=== PATIENT | male | born 1970 | race Caucasian/White ===

== ENCOUNTER 2023-06-20 12:47 | Inpatient (IN) | payer MEDICAID ==
[~2023-06-20] VITALS: Ht 172.7 cm; Wt 73.0 kg
[2023-06-20 12:54] VITALS: BP_SYST 113; PULSE 97; RESP 18; TEMP 97.9; O2SAT 99
[2023-06-20] MEDS: NS 1000 ML IV.SOLN IV ONE (13:54)
[2023-06-20 14:06] LABS: BASOPHILS % (AUTO) 0.3 % (0.0-2.0); EOSINOPHILS # (AUTO) 0.1 K/uL (0.0-0.4); EOSINOPHILS % (AUTO) 1.1 % (0.0-4.0); HEMATOCRIT 34.2 % (36-54); LYMPHOCYTES # (AUTO) 1.7 K/uL (1.0-5.5); LYMPHOCYTES % (AUTO) 24.7 % (20.5-51.5); MEAN CORPUSCULAR HEMOGLOBIN 32 pg (27-31); MEAN CORPUSCULAR HGB CONC 35 % (32-36); MEAN CORPUSCULAR VOLUME 90 fL (79.0-98.0); MONOCYTES # (AUTO) 0.2 K/uL (0.0-1.0); MONOCYTES % (AUTO) 3.6 % (1.7-9.3); NEUTROPHILS # (AUTO) 4.9 K/uL (1.8-7.7); NEUTROPHILS % (AUTO) 70.3 % (40.0-70.0); PLATELET COUNT (AUTO) 272 K/uL (130-430); RED BLOOD CELL COUNT(AUTO) 3.79 MIL/uL (4.2-6.2); RED CELL DISTRIBUTION WIDTH 14.5 % (9.0-15.0); WHITE BLOOD COUNT (AUTO) 6.9 K/uL (4.8-10.8)
[2023-06-20 14:32] LABS: ALANINE AMINOTRANSFERASE 21 U/L (12-78); ALBUMIN 2.7 g/dL (3.4-4.8); ANION GAP 5 (5-15); ASPARTATE AMINOTRANSFERASE 15 U/L (10-37); BILIRUBIN,DIRECT 0.1 mg/dL (0.0-0.3); CARBON DIOXIDE 27 mmol/L (23-29); CHLORIDE 94 mmol/L (98-107); CREATININE 1.51 mg/dL (0.55-1.30); GFR AFRICAN AMERICAN 63 mL/min (>90); POTASSIUM 3.9 mmol/L (3.5-5.1); SODIUM SERUM 126 mmol/L (136-145); TOTAL BILIRUBIN 0.2 mg/dL (0.0-1.0); TOTAL PROTEIN, SERUM 6.9 g/dL (6.4-8.3); UREA NITROGEN, BLOOD 16 mg/dL (8-21)
[2023-06-20 14:51] LABS: GFR NON AFRICAN-AMERICAN 52 mL/min (>90)
[2023-06-20 14:55] LABS: GLUCOSE 641 mg/dL (74-106)
[2023-06-20] MEDS: MEROPENEM 1 GM in NS 100 ML IV ONE (15:32)
[2023-06-20] MEDS: INSULIN REGULAR, HUMAN 10 UNITS/0.1 ML, 3 ML VIAL IVP ONE (15:36)
[2023-06-20] MEDS ORDERED: D5W 1,000 ML IV PRN (16:15)
[2023-06-20] MEDS ORDERED: GLUCOSE (DEXTROSE) ORAL GEL -Adults PO PRN (16:15)
[2023-06-20] MEDS ORDERED: DEXTROSE 50% JECT 50 ML DISP.SYRIN IVP PRN (16:15)
[2023-06-20 18:03] VITALS: BP_SYST 139; PULSE 79; RESP 20; TEMP 98; O2SAT 100
[2023-06-20 18:04] VITALS: BP_SYST 139; PULSE 79; RESP 20; TEMP 98; O2SAT 100
[2023-06-20] MEDS ORDERED: VANCOMYCIN HCL 1 GM/NS PREMIX 250 ML IV SCH (18:15)
[2023-06-20 18:51] LABS: CHOLESTEROL 154 mg/dL (<200); HDL CHOLESTEROL 52 mg/dL (>45); TRIGLYCERIDES 150 mg/dL (30-150)
[2023-06-20 20:00] VITALS: BP_SYST 138; PULSE 76; RESP 18; TEMP 97.9; O2SAT 99
[2023-06-20] MEDS: VANCOMYCIN HCL 1,000 MG in NS 250 ML IV SCH (20:06)
[2023-06-20] MEDS: POTASSIUM CHLORIDE 10 MEQ in NACL 0.9% 1,000 ML IV SCH (20:06)
[2023-06-20] MEDS: MEROPENEM 500 MG in NS 50 ML IV SCH (21:23)
[2023-06-20] MEDS: INSULIN GLARGINE 100 UNITS/ML, 10 ML VIAL SUBCUT SCH (21:24)
[2023-06-20] MEDS: INSULIN REGULAR, HUMAN 100 UNITS/ML, 3 ML VIAL (humuLIN R) SUBCUT PRN (21:24)
[2023-06-21 01:21] VITALS: BP_SYST 110; PULSE 64; RESP 18; TEMP 97.6; O2SAT 100
[2023-06-21 08:00] VITALS: BP_SYST 125; PULSE 80; RESP 16; TEMP 98.6; O2SAT 100
[2023-06-21] MEDS: INSULIN GLARGINE 100 UNITS/ML, 10 ML VIAL SUBCUT SCH (09:00)
[2023-06-21 09:15] VITALS: O2SAT 100
[2023-06-21 10:39] LABS: BASOPHILS % (AUTO) 0.6 % (0.0-2.0); EOSINOPHILS # (AUTO) 0.1 K/uL (0.0-0.4); EOSINOPHILS % (AUTO) 2.1 % (0.0-4.0); HEMATOCRIT 34.6 % (36-54); HEMOGLOBIN 12.1 g/dL (14.0-18.0); LYMPHOCYTES # (AUTO) 1.8 K/uL (1.0-5.5); LYMPHOCYTES % (AUTO) 30.8 % (20.5-51.5); MEAN CORPUSCULAR HEMOGLOBIN 31 pg (27-31); MEAN CORPUSCULAR HGB CONC 35 % (32-36); MEAN CORPUSCULAR VOLUME 89 fL (79.0-98.0); MONOCYTES # (AUTO) 0.2 K/uL (0.0-1.0); MONOCYTES % (AUTO) 3.2 % (1.7-9.3); NEUTROPHILS # (AUTO) 3.7 K/uL (1.8-7.7); NEUTROPHILS % (AUTO) 63.3 % (40.0-70.0); PLATELET COUNT (AUTO) 267 K/uL (130-430); RED BLOOD CELL COUNT(AUTO) 3.89 MIL/uL (4.2-6.2); RED CELL DISTRIBUTION WIDTH 14.4 % (9.0-15.0); WHITE BLOOD COUNT (AUTO) 5.8 K/uL (4.8-10.8)
[2023-06-21 11:11] LABS: ALBUMIN 2.2 g/dL (3.4-4.8); CALCIUM 7.9 mg/dL (8.4-11.0); CREATININE 0.66 mg/dL (0.55-1.30); POTASSIUM 4.1 mmol/L (3.5-5.1); TOTAL BILIRUBIN 0.1 mg/dL (0.0-1.0); TOTAL PROTEIN, SERUM 5.8 g/dL (6.4-8.3)
[2023-06-21 12:56] VITALS: BP_SYST 121; PULSE 72; RESP 17; TEMP 98; O2SAT 98
== END 2023-06-21 13:20 | disposition left against medical advice (07) | DRG 344 ==
LOC: SED 12:47 → SMU 16:14
PROVIDERS: ADMIT Specialist; ATTEND Specialist
DX: E11.69 Type 2 diabetes mellitus with other specified complication (principal); M86.8X7 Other osteomyelitis, ankle and foot; E46 Unspecified protein-calorie malnutrition; E11.51 Type 2 diabetes mellitus with diabetic peripheral angiopathy without gangrene; I73.9 Peripheral vascular disease, unspecified; E87.1 Hypo-osmolality and hyponatremia; N19 Unspecified kidney failure; E11.65 Type 2 diabetes mellitus with hyperglycemia; I10 Essential (primary) hypertension; E78.5 Hyperlipidemia, unspecified; Z79.899 Other long term (current) drug therapy; Z68.24 Body mass index [BMI] 24.0-24.9, adult
CPT/HCPCS: 36415; 71045; 80048; 80053; 80061; 80076; 82948; 83605; 84484; 85025; 87040; 93005; 96361; 96365; 96375; 99285; J1815; J2185; J3370; J3480; J7030; J7050